=== PATIENT | female | born 1935 | race Caucasian/White ===

== ENCOUNTER → 2020-10-07 | Outpatient (CLI) | payer MEDICARE ==
[2016-07-10 13:40] VITALS: BP 112/70
[~2020-10-07] MED LIST: HYDR-3165 PO; ONDA4TAB10 PO
--- NOTE | 2020-10-07 13:01 | RAD ---
EXAM: DUAL ENERGY X-RAY ABSORPTIOMETRY (DEXA). HISTORY: Postmenopausal screening. FINDINGS: The lowest measured T-score is -3.2 in the lumbar spine, based on a bone mineral density of 0.793 g/cm^2. Refer to the worksheets for full detail. No comparison examinations are available. IMPRESSION: 1. Osteoporosis. Bone mineral density yields a T-score of -2.5 or less. Fracture risk is high. 2. FRAX report: Not calculated. METHODOLOGY: Dual energy x-ray absorptiometry was performed to measure bone mineral density. The foll owing analysis is based on the 2019 Official Positions of the International Society for Clinical Dens itometry: Measurements of the hips and the average of L1-L4 are preferred. When the spine and/or hip cannot be feasibly measured or interpreted, or in the setting of hyperparathyroidism, distal radial bone minera l density may be measured. The lumbar spine T-score is based on the average bone mineral density of L1-L4. In the setting of art ifact or anatomic abnormality, some lumbar levels may be excluded, and the remaining levels used for calculation. A single lumbar level is not used for diagnosis, and if only a single level is available for assessment, another anatomic site will be used to assign a diagnosis. The hip T-score is based on the bone mineral density measurement of the femoral neck or total proxima l femur of either side, whichever is lowest. Bilateral mean values are not used for diagnosis. The forearm T-score is derived from 33% of the distal radius of the nondominant forearm. Electronically signed by: Colette Rodriguez MD (10/07/2020 12:59 PM) [id number]
== END ==
LOC: DXRAD 10:57
PROVIDERS: ATTEND Family Medicine
DX: M81.0 Age-related osteoporosis without current pathological fracture (principal)
CPT/HCPCS: 77080

== ENCOUNTER → 2021-10-25 | Outpatient (CLI) | payer MEDICARE ==
[2016-07-10 13:40] VITALS: BP 112/70
[2021-10-25 12:06] LABS: CLARITY,URINE CLOUDY; COLOR,URINE YELLOW; GLUCOSE,URINE NEG (NEG)
[2021-10-25 12:07] LABS: BACTERIA,URINE FEW /HPF (0-FEW); NITRITE,URINE NEG (NEG); SQUAMOUS EPITHELIAL CELL,UR MOD /LPF; UROBILINOGEN,URINE 0.2 mg/dL (0.2 mg/dL); WBC,URINE >40 /HPF (0-4)
[2021-10-25 12:15] LABS: BASO # 0.1 x10^3/uL (0.0-0.2); BASO % 1 % (0-3); EOS % 0 % (0-3); HEMATOCRIT 47.3 % (36.0-47.0); HEMOGLOBIN 15.6 g/dL (12.0-15.5); LYMPH # 2.7 x10^3/uL (1.0-4.8); LYMPH % 22 % (24-48); MEAN CORPUSCULAR HEMOGLOBIN 28 pg (25-35); MEAN CORPUSCULAR HGB CONC 33 g/dL (31-37); MEAN CORPUSCULAR VOLUME 84 fL (79-100); MONO % 8 % (0-9); NEUT # 8.4 x10^3uL (1.8-7.7); NEUT % 69 % (31-73); PLATELET COUNT 285 x10^3/uL (140-400); RED BLOOD COUNT 5.62 x10^6/uL (3.50-5.40); RED CELL DISTRIBUTION WIDTH 14.2 % (11.5-14.5); WHITE BLOOD COUNT 12.2 x10^3/uL (4.0-11.0)
[2021-10-25 12:30] LABS: ALBUMIN 3.8 g/dL (3.4-5.0); ALBUMIN/GLOBULIN RATIO 1.3 (1.0-1.7); CALCIUM 9.4 mg/dL (8.5-10.1); CREATININE 0.8 mg/dL (0.6-1.0); POTASSIUM 3.2 mmol/L (3.5-5.1); TOTAL BILIRUBIN 1.2 mg/dL (0.2-1.0); TOTAL PROTEIN 6.7 g/dL (6.4-8.2)
== END ==
LOC: LAB 11:00
PROVIDERS: ATTEND Family Medicine
DX: K92.1 Melena (principal)
CPT/HCPCS: 36415; 80053; 81001; 83690; 85025; 87077; 87086; 87186

== ENCOUNTER → 2021-10-28 | Outpatient (CLI) | payer MEDICARE ==
[2016-07-10 13:40] VITALS: BP 112/70
[~2021-10-28] MED LIST changes: +IOHEXOL 240 MG/ML 50ML VIAL. ONE; +IOHEXOL 240 MG/ML 50ML VIAL. PO ONE; +IOHEXOL 300 MG/ML 75 ML VIAL. IV ONE
--- NOTE | 2021-10-28 11:54 | RAD ---
EXAM: CT Abdomen and Pelvis with and without IV contrast CLINICAL HISTORY: Reason: GENERALIZED ABD PAIN, SWOLLEN LYMPH NODES, RECTAL BLDG, HERNIA / Spl. Instr uctions: OMNI 240 30ML ORAL, OMNI 300 75ML IV / History: . COMPARISON: none TECHNIQUE: Helical CT of the abdomen and pelvis was performed before and after the administration of intravenous contrast. Oral contrast was administered. Axial, coronal and sagittal reformatted images were generated. PQRS compliance statement - One or more of the following individualized dose reduction techniques wer e utilized for this study: 1. Automated exposure control 2. Adjustment of the mA and/or kV according to patient size 3. Use of iterative reconstruction technique FINDINGS: Lower chest: Linear opacities lung bases likely scarring/atelectasis. Abdomen and Pelvis: A 3 cm right hepatic dome hypodense lesion with peripheral nodular enhancement on the postcontrast im aging consistent with hemangioma. Calcified gallstone is seen within the gallbladder. No biliary duct al dilatation. Spleen, adrenal glands and pancreas are unremarkable. Bilateral renal cysts are seen. Additional subcentimeter hypodense renal lesions are too small to acc urately characterize but also likely cysts. No hydronephrosis. No hydroureter. Bladder wall is mildly thickened, possibly cystitis or related to under distended state. Appendix is not convincingly seen although no pericecal inflammatory change. Moderate colonic stool c ontent is seen. No small or large bowel dilatation. No bowel obstruction. Aorta is normal in caliber with atherosclerotic calcifications. Small fat-containing left inguinal hernia. Changes of prior vent ral hernia repair. No abdominal or pelvic ascites. No abdominal or pelvic lymphadenopathy. Bones: There is leftward curvature of the thoracolumbar spine apex L2. Height loss of the T12 vertebral body , age-indeterminate compression fracture. Symphysis uterus degenerative changes. Sclerotic focus righ t acetabulum likely bone island. Decreased bone marrow density IMPRESSION: Age-indeterminate compression fracture T12. 3 cm hepatic hemangioma. Moderate colonic stool content. No bowel obstruction. Cholelithiasis without CT evidence for acute cholecystitis. Electronically signed by: Darion Kwan MD (10/28/2021 11:52 AM) [id number]
== END ==
LOC: CT 09:18
PROVIDERS: ATTEND Family Medicine
DX: K80.20 Calculus of gallbladder without cholecystitis without obstruction (principal); D18.03 Hemangioma of intra-abdominal structures; N28.1 Cyst of kidney, acquired; N28.89 Other specified disorders of kidney and ureter; K40.90 Unilateral inguinal hernia, without obstruction or gangrene, not specified as recurrent; M43.8X5 Other specified deforming dorsopathies, thoracolumbar region; M51.24 Other intervertebral disc displacement, thoracic region; M48.54XA Collapsed vertebra, not elsewhere classified, thoracic region, initial encounter for fracture
CPT/HCPCS: 74178; Q9966; Q9967